=== PATIENT | female | born 1960 | race Caucasian/White ===

== ENCOUNTER 2016-12-12 08:23 | Day surgery (SDC) | payer OTHER ==
[2016-12-01 11:55] VITALS: BMI 27.8
[~2016-12-12 08:23] MED LIST: EPINEPHrine 1:1000 Nasal Sol(30mL) ONE; Lidocaine 1% w Epi 1:100,000 Inj ONE; Oxymetazoline 0.05% Nasal Spray (30 ml) NS ONE
[2016-12-12] MEDS ORDERED: Acetaminophen-Codeine 300/30 mg Tab PO PRN (08:41)
[2016-12-12] MEDS ORDERED: Dextrose 5%/0.45% NS 1,000 ML IV SCH (08:45)
[2016-12-12] MEDS ORDERED: Clindamycin 600mg/50ml NS 600 MG/50 ML BAG IVPB STA (10:47)
[2016-12-12] MEDS ORDERED: Lactated Ringer's 1,000 ML IV ONE (11:30)
[2016-12-12] MEDS ORDERED: Lidocaine 1% w Epi 1:100,000 Inj ONE (11:36)
[2016-12-12] MEDS ORDERED: Midazolam 2 MG/2 ML VIAL ONE (11:36)
[2016-12-12] MEDS ORDERED: Propofol 10 mg/ml Inj (20 ML) ONE (11:36)
[2016-12-12] MEDS ORDERED: Neostigmine Methylsulfate 3mg/3ml Syringe IV ONE (11:59)
[2016-12-12] MEDS: HYDROmorphone 0.5 mg/0.5 ml ISec IVP PRN ×2 (13:06→13:16)
[2016-12-12] MEDS ORDERED: HYDROmorphone 0.5 mg/0.5 ml ISec ONE (13:16)
[2016-12-12 14:44] VITALS: BP 135/69; PULSE 80; RESP 18; TEMP 97.9; O2SAT 100
--- NOTE | 2016-12-12 15:16 | OP ---
*------* Deviated septum, enlarged turbinates. PROCEDURE: Septoplasty, bilateral endoscopic inferior turbinate reduction. SIGNIFICANT FINDINGS: Deviated septum, enlarged inferior turbinates. PROCEDURE: The patient was brought into the room, placed in a supine position. Anesthesia was initiated through an ET tube. Adrenaline-soaked pledgets were inserted into the nasal cavity remaining there for at least 5 minutes then removed. The patient was draped in the usual manner. The septum was injected with lidocaine with epinephrine on both sides. A Mallory's incision was made on the left and the mucoperichondrial flap was raised. *------* incision was made in the cartilage leaving a 1.5 cm anterior and superior strut and the mucoperichondrial flap was raised on the other side. Deviated portion of the cartilage and bone were removed using forceps and chisel. A quilting suture was used to suture the 2 flaps together and close the Fran incision. A 0-degree scope was inserted into the nasal cavity. The inferior turbinates on both sides were noted to be enlarged. They were reduced first on the left, then on the right using scissors going from an inferior to superior and anterior to posterior direction. Bleeding was controlled using suction cautery. Splints were placed. The patient was taken off anesthesia and taken to recovery room in a stable manner. Jones Van MD
== END 2016-12-12 17:11 | disposition home or self-care (01) ==
LOC: C.SDS 08:23
PROVIDERS: ATTEND Otolaryngology
DX: J34.2 Deviated nasal septum (principal); J34.3 Hypertrophy of nasal turbinates
CPT/HCPCS: 30520; 30802; 88304; J1100; J1170; J2250; J2704; J2710; J3010; J7030; J7120

== ENCOUNTER 2018-07-10 09:09 | Outpatient (CLI) | payer OTHER | END 2018-07-10 09:10 | disposition home or self-care (01) | LOC: C.CTH 09:09 | DX: J32.9 Chronic sinusitis, unspecified (principal) ==